=== PATIENT | female | born 1985 | race Caucasian/White ===

== ENCOUNTER → 2017-01-01 | Outpatient (CLI) | payer MEDICAID | LOC: HPND 13:55 | PROVIDERS: ATTEND Obstetrics & Gynecology | DX: O35.1XX0 Maternal care for (suspected) chromosomal abnormality in fetus, not applicable or unspecified (principal); O34.212 Maternal care for vertical scar from previous cesarean delivery; O09.32 Supervision of pregnancy with insufficient antenatal care, second trimester | CPT/HCPCS: 76811 ==

== ENCOUNTER → 2017-01-17 | Outpatient (CLI) | payer MEDICAID | LOC: HPND 10:33 | PROVIDERS: ATTEND Obstetrics & Gynecology | DX: O35.1XX0 Maternal care for (suspected) chromosomal abnormality in fetus, not applicable or unspecified (principal) | CPT/HCPCS: 59000; 76815; 76946 ==

== ENCOUNTER → 2017-02-07 | Outpatient (CLI) | payer MEDICAID | LOC: HPND 11:49 | PROVIDERS: ATTEND Obstetrics & Gynecology | DX: O35.1XX0 Maternal care for (suspected) chromosomal abnormality in fetus, not applicable or unspecified (principal) | CPT/HCPCS: 76816 ==

== ENCOUNTER → 2017-03-05 | Outpatient (CLI) | payer MEDICAID, OTHER ==
[~2017-03-05] MED LIST: IBUP-232 PO; OXYC1TAB63 PO; PERI8.6T PO
== END ==
LOC: HPND 07:50
PROVIDERS: ATTEND Obstetrics & Gynecology
DX: O35.8XX0 Maternal care for other (suspected) fetal abnormality and damage, not applicable or unspecified (principal)
CPT/HCPCS: 76816

== ENCOUNTER → 2017-04-11 | Outpatient (CLI) | payer MEDICAID, OTHER | LOC: HPND 08:19 | PROVIDERS: ATTEND Obstetrics & Gynecology | DX: O35.8XX0 Maternal care for other (suspected) fetal abnormality and damage, not applicable or unspecified (principal) | CPT/HCPCS: 76816; 76818 ==

== ENCOUNTER 2017-04-27 13:55 | Inpatient (IN) | payer OTHER ==
[~2017-04-27] VITALS: Ht 157.5 cm; Wt 56.2 kg
[2017-04-27] VITALS (7 sets, daily range): BP systolic 108–120; BP diastolic 65–70; PULSE 68–80; RESP 16–18; TEMP 97.7–98.6; O2SAT 98–100
[~2017-04-27 13:55] MED LIST changes: +DEXAMETHASONE SOD PHOS 4 MG/ML VIAL IV ONE; -IBUP-232 PO; +KETOROLAC TROMETHAMINE 30 MG/ML (IVP) VIAL IV PUSH ONE; +LACTATED RINGER'S 1000 ML INJ 2,000 ML IV ONE; +LIDOCAINE 2%/EPINEPHrine PF 1:200,000 20ML SDV OTHER ONE; +LIDOCAINE HCL 2% 100 MG/5 ML SYRINGE OTHER ONE; +MIDAZOLAM HCL 2 MG/2 ML VIAL IV ONE; +MORPHINE SULFATE 4 MG/ML INJ IV ONE; +MORPHINE SULFATE PF 5 MG/10 ML VIAL ONE; +NEOSTIGMINE 3 MG/3 ML SYR IV ONE; +ONDANSETRON HCL 4 MG/2 ML VIAL IV PUSH ONE; -OXYC1TAB63 PO; +OXYTOCIN 10 UNIT/ML AMP IV ONE; -PERI8.6T PO; +PROPOFOL 200 MG/20 ML AMP IV ONE; +SUCCINYLCHOLINE CHLORIDE 100 MG/5 ML SYRINGE IV PUSH ONE; +ceFAZolin INJ 1,000 MG VIAL IV ONE
--- NOTE | 2017-04-27 14:55 | PD ---
HPI Chief Complaint 35 weeks and 2 days Uterine contractions 2 -3 hours Date Seen: Apr 27, 2017 Time Seen: 14:00 Travel History International Travel<30 Days: No Contact w/Intl Traveler<30Days: No Known Affected Area: No History of Present Illness HPI Pt is a 31 yo , EDC 05-30-2017. Pt has complicated by TGV. Delivery is planned by C Section on 2016 at [place]. Pt presented for scheduled Diagnostic OB ultrasound this morning here, and discharged home. Since then, she reports uterine cramping. Active movements, no vaginal leaking or bleeding. No fevers or chills. Weeks Gestation: 35 Para: 1 : 2 History Past Medical History Medical History: Denies Significant Hx Obstetric History Obstetric History Pt had 3 term low tranverse C Sections. Pt had last complicated by hydrocephalus, delivered by Classical C Section. This complicated by TGV Past Surgical History Narrative Surgical C Section x 4 Family History Family History: Negative Social History Alcohol Use: No Tobacco Use: No Substance Abuse: No Allergies-Medications (Allergen,Severity, Reaction): Coded Allergies: No Known Allergies (Unverified , 04/27/17) Home Meds No Active Prescriptions or Reported Meds Review of Systems Except as stated in HPI: all other systems reviewed are Neg Physical Exam Narrative GENERAL: Well-nourished, well-developed patient. SKIN: Warm and dry. HEAD: Normocephalic and atraumatic. EYES: No scleral icterus. No injection or drainage. ENT: No nasal drainage noted. Mucous membranes pink. Airway patent. NECK: Supple, trachea midline. No JVD. CARDIOVASCULAR: Regular rate and rhythm without murmurs, gallops, or rubs. RESPIRATORY: Breath sounds equal bilaterally. No accessory muscle use. BREASTS: Bilateral exam showed no masses , no retractions, no nipple discharge. ABDOMEN/GI: Abdomen soft, non-tender, bowel sounds present, no rebound, no guarding Gravid to [35] weeks size Fundal Height: [-] GENITOURINARY: External Genitalia: intact and normal in appearance BUS glands: [-] Cervix: [firm-] Dilatation: [closed-] Effacement: [505] Station: [-3] Presentation: [vertex] Membranes: [intact] Uterine Contractions: [irregular, every 10 minutes] FHT's: Category: [1] Baseline: [120s] Reactive: [-] Variability: [moderate] Decels: [none] EXTREMITIES: No cyanosis or edema. BACK: Nontender without obvious deformity. No CVA tenderness. NEUROLOGICAL: Awake and alert. Motor and sensory grossly within normal limits. Five out of 5 muscle strength in all muscle groups. Normal speech. Data Data Vital Signs Reviewed: Yes Orders Orders Vital Signs (Adult) .ON ADMISSION (04/27/17:) ^ Labor Status (04/27/17) Urinalysis - C+S If Indicated (04/27/17:) ^ Hydration (04/27/17) Lactated Ringer's 1000 Ml Inj (Lr 1000 M (04/27/17:) Ondansetron Inj (Zofran Inj) (04/27/17 14:30) Terbutaline Inj (Brethine Inj) (04/27/17 14:30) MDM Medical Record Reviewed: Yes Interpretation(s) contractions, cervix closed. UA pending Plan IV LR bolus,, SQ Terbutaline 0.25mg, expectant After IV was started, and patient received SQ Terbutaline, patient vomited. Immediately after we noted bradycardia. Abdomen felt firm. This was confirmed with ultrasound FHR in 70s. Repeat SVE showed cervix soft, closed, 505. No bleeding noted. Decision made to proceed with stat C Section for NRFHR, Cat III, possible concealed placental abruption. Diagnosis Diagnosis: Primary Impression: uterine contractions in second trimester, antepartum Additional Impression: 35 weeks gestation of Scripts No Active Prescriptions or Reported Meds Franco Wilde MD Apr 27, 2017 14:55
[2017-04-27] MEDS ORDERED: ONDANSETRON HCL 4 MG/2 ML VIAL IV PUSH ONE (15:00)
[2017-04-27] MEDS ORDERED: TERBUTALINE INJ 1 MG/ML AMP SQ ONE (15:00)
[2017-04-27] MEDS ORDERED: LACTATED RINGER'S 1000 ML INJ 1,000 ML IV SCH ×2 (15:00→21:02)
[2017-04-27 15:30] LABS: BLOOD, URINE NEG (NEG); COMMENT (UR) CULT NOT INDICATED; CULTURE IF INDICATED CULT NOT INDICATED; GLUCOSE,URINE NEG (NEG); KETONE, URINE NEG (NEG); MUCUS URINE FEW /lpf (OCC); NITRITE,URINE NEG (NEG); PH, URINE 7.5 (5.0-8.5); URINE COLOR YELLOW (YELLW/STRAW)
[2017-04-27] MEDS ORDERED: ACETAMINOPHEN 1000 MG/100 ML 100 ML IV ONE (15:30)
[2017-04-27 16:06] LABS: BLOOD GAS BASE EXCESS -11.4 mmol/L (-2-2); BLOOD GAS O2 HGB SATURATION 2 % (90-100); CORD BLOOD GAS HCO3 21 mmol/L (21-29); CORD BLOOD GAS PCO2 127 mmHG (34-78); CORD BLOOD GAS PH 6.85 (7.14-7.42); CORD BLOOD GAS PO2 3 mmHG (3.0-40.0)
[2017-04-27 16:07] LABS: DRAW SITE CORD BLOOD; STAT NO
[2017-04-27] MEDS ORDERED: ONDANSETRON HCL 4 MG/2 ML VIAL IV PUSH PRN (16:15)
[2017-04-27] MEDS ORDERED: ACETAMINOPHEN 325 MG TAB PO PRN (16:15)
[2017-04-27] MEDS ORDERED: SODIUM CHLORIDE 0.9% FLUSH 10 ML FLUSH IV FLUSH PRN (16:15)
[2017-04-27] MEDS ORDERED: diphenhydrAMINE HCL 50 MG/ML VIAL IV PUSH PRN (16:15)
[2017-04-27] MEDS ORDERED: NALOXONE HCL 0.4 MG/ML AMP IV PUSH PRN (16:15)
[2017-04-27] MEDS ORDERED: OXYTOCIN 30 UNITS-500ML PREMIX 500 ML IV ONE (16:15)
[2017-04-27] MEDS ORDERED: KETOROLAC TROMETHAMINE 60 MG/2 ML (IM) VIAL IM PRN (16:15)
--- NOTE | 2017-04-27 16:30 | RADRPT ---
EXAM DATE/TIME: 04/27/2017 16:04 [facility] COMPARISON: No previous studies available for comparison. INDICATIONS : Instrument count for stat MEDICAL HISTORY : None. SURGICAL HISTORY : None. ENCOUNTER: Initial ACUITY: 1 day PAIN SCORE: Non-responsive. LOCATION: Abdomen FINDINGS: No definite radiopaque foreign bodies are demonstrated. The nonobstructive bowel gas pattern. No sign ificant abnormal calcification. The osseous structures are intact. CONCLUSION: No radiopaque foreign bodies identified. Antonio Jackson MD on April 27, 2017 at 16:27 Board Certified Radiologist. This report was verified electronically.
--- NOTE | 2017-04-27 16:33 | PD.OB.DELI ---
Procedure Note Section Procedure Pre Op Diagnosis: (1) 35 weeks gestation of (2) uterine contractions in second trimester, antepartum (3) bradycardia before the onset of labor Post Op Diagnosis: (1) 35 weeks gestation of (2) uterine contractions in second trimester, antepartum (3) bradycardia before the onset of labor (4) Uterine rupture Performed by Franco Wilde Procedure: Classical Section (Uterine rupture through previous classical scar) Indication for delivery: Nonreassuring heart tracing Previous condition: Perforation of Uterus Confirmed correct: Other (STAT C -SECTION) Anesthesia: Other (General endotracheal) Medication prior to procedure: As documented in eMAR Monitoring during procedure: Blood pressure monitoring, threat monitoring analyst Urinary catheter: Inserted using sterile technique Sterile preparation: With 10% povidone iodine (Betadine) Operative Features Skin Incision: Transverse Uterine Incision: Other (Midline vertical uterine rupture) Membranes Ruptured: Artificially Presentation: Occiput anterior Delivery date: Apr 27, 2017 Delivery time: 15:11 Delivery of : Assisted Infant: Male One Minute : 1 Five Minute : 4 Ten Minute : 5 Weight: 6 pounds Status of infant: Viable, Cord blood, Umbilical cord Placenta delivered: Intact Medications: Antibiotics Estimated blood loss: 600cc Procedure tolerated: Well Maternal Complications: Uterine rupture Maternal Condition: Stable Condition: Guarded (known TGV) Procedure in detail Pt was noted to have cat 1 FHR after vomiting. FHR was noted to be 70s on monitor. Abdomen palpated firm, SVE showed cervix closed, no vaginal bleeding. FHR confirmed with US. Stat C Section called on account prolonged bradycardia. Pt was brought to OR and placed dorsal supine on the operating table. Cleansed and draped in standard fashion with Betadine. General anesthesia induced and smoothly intubated. Midline subumbilical vertical incision made with scalpel. Rectus muscles and underlying peritoneum identified, tented with hemostats and extened by stretching. Extrauterine amniotic bag noted. Anterior uterine midline rupture noted. Intact membranes. Minimal bleeding noted from rupture. Amniotomy done with clear fluid. delivered from vertex, clamped and divided and passed to waiting Pediatricians. Posterior attachment of placenta delivered manually. No evidence of placental abruption. Uterine cavity cleared of all clot and debris. Uterine rupture closed in 3 layers, after edges sharpened, first with 0 Vicryl, continuous locking, second of the same material, used to imbricate the first.Serosa re-approximated with 2.0 Vicryl. Kenn hemostatic agent applied on incision and Sepra-film overlaid. Gutters cleared of debris and uterus returned to intraperitoneal location. Parietal peritoneum closed with 2.0 Vicryl and rectus fascia closed with 1 PDS. Subcutaneous tissue irrigated with warm saline and space reapproximated with 2.o Vicryl. Finally skin closed with 3.0 Monocryl in subcuticular fashion. X-ray done to confirm absence of retained sponge, in lieu of pre-operative count. Franco Wilde MD Apr 27, 2017 16:33
[2017-04-27] MEDS ORDERED: HYDROmorphone HCL PCA 6 MG/30 ML IV ONE (17:02)
[2017-04-27] MEDS: HYDROmorphone HCL PCA 6 MG/30 ML IV SCH (17:06)
[2017-04-27] MEDS ORDERED: OXYTOCIN 30 UNITS-500ML PREMIX 500 ML ONE (17:17)
--- NOTE | 2017-04-27 19:15 | HHI.HP ---
HPI Chief Complaint Admission H&P dictated after events Pt was rushed to stat C Section for Cat III FHR at 35 weeks and 1 day. Date Seen: Apr 27, 2017 Travel History International Travel<30 Days: No Contact w/Intl Traveler<30Days: No Known Affected Area: No History of Present Illness HPI Pt is a 31 yo , EDC 05-30-2017. Pt has complicated by TGV. Delivery is planned by C Section on 2016 at [place]. Pt presented for scheduled Diagnostic OB ultrasound this morning here, and discharged home. Since then, she reports uterine cramping. Active movements, no vaginal leaking or bleeding. No fevers or chills. Cervical exam was closed, FHR Cat 1 initially, but we noted regular contractions every 5-10 minutes. Pt felt contractions. We started IV bolus, and administered TERButaline SQ x 1. Pt subsequently vomited after which we noted immediate bradycardia. FHR stayed in 70s, for 7 minutes and decision was made for stat C Section. Weeks Gestation: 35 Para: 4 : 5 History Past Medical History Medical History: Denies Significant Hx Obstetric History Obstetric History 4 previous C sections x3 term LTCS Last by classical C Section Past Surgical History Narrative Surgical C Sections x 4 Social History Alcohol Use: No Tobacco Use: No Substance Abuse: No Allergies-Medications (Allergen,Severity, Reaction): Coded Allergies: No Known Allergies (Unverified , 04/27/17) Home Meds No Active Prescriptions or Reported Meds Review of Systems Except as stated in HPI: all other systems reviewed are Neg Physical Exam Vital Signs Date Time Temp Pulse Resp B/P (MAP) Pulse Ox O2 Delivery O2 Flow Rate FiO2 04/27/17 17:48 79 18 113/69 (84) 99 04/27/17 17:44 98.1 04/27/17 17:31 80 120/65 (83) 04/27/17 17:31 18 99 04/27/17 17:20 68 108/67 (81) 04/27/17 17:20 18 99 04/27/17 17:05 70 16 111/70 (84) 100 04/27/17 16:55 97.7 80 18 111/67 (82) 100 Narrative GENERAL: Well-nourished, well-developed patient. SKIN: Warm and dry. HEAD: Normocephalic and atraumatic. EYES: No scleral icterus. No injection or drainage. ENT: No nasal drainage noted. Mucous membranes pink. Airway patent. NECK: Supple, trachea midline. No JVD. CARDIOVASCULAR: Regular rate and rhythm without murmurs, gallops, or rubs. RESPIRATORY: Breath sounds equal bilaterally. No accessory muscle use. BREASTS: Bilateral exam showed no masses , no retractions, no nipple discharge. ABDOMEN/GI: Abdomen soft, non-tender, bowel sounds present, no rebound, no guarding Gravid to [35] weeks size Fundal Height: [-] GENITOURINARY: External Genitalia: intact and normal in appearance Please see description of events elsewhere in this note. EXTREMITIES: No cyanosis or edema. BACK: Nontender without obvious deformity. No CVA tenderness. NEUROLOGICAL: Awake and alert. Motor and sensory grossly within normal limits. Five out of 5 muscle strength in all muscle groups. Normal speech. Caprini VTE Risk Assessment Caprini VTE Risk Assessment: No/Low Risk (score <= 1) Caprini Risk Assessment Model Point Value = 1 Point Value = 2 Point Value = 3 Point Value = 5 Age 41-60 Minor surgery BMI > 25 kg/m2 Swollen legs Varicose veins or History of unexplained or recurrent spontaneous Oral contraceptives or hormone replacement Sepsis (< 1 month) Serious lung disease, including pneumonia (< 1 month) Abnormal pulmonary function Acute myocardial infarction Congestive heart failure (< 1 month) History of inflammatory bowel disease Medical patient at bed rest Age 61-74 Arthroscopic surgery Major open surgery (> 45 min) Laparoscopic surgery (> 45 min) Malignancy Confined to bed (> 72 hours) Immobilizing plaster cast Central venous access Age >= 75 History of VTE Family history of VTE Factor V Leiden Prothrombin [id number] Lupus anticoagulant Anticardiolipin antibodies Elevated serum homocysteine Heparin-induced thrombocytopenia Other congenital or acquired thrombophilia Stroke (< 1 month) Elective arthroplasty Hip, pelvis, or leg fracture Acute spinal cord injury (< 1 month) Prophylaxis Regimen Total Risk Factor Score Risk Level Prophylaxis Regimen 0-1 Low Early ambulation 2 Moderate Order ONE of the following: *Sequential Compression Device (SCD) *Heparin 5000 units SQ BID 3-4 Higher Order ONE of the following medications: *Heparin 5000 units SQ TID *Enoxaparin/Lovenox 40 mg SQ daily (WT < 150 kg, CrCl > 30 mL/min) *Enoxaparin/Lovenox 30 mg SQ daily (WT < 150 kg, CrCl > 10-29 mL/min) *Enoxaparin/Lovenox 30 mg SQ BID (WT < 150 kg, CrCl > 30 mL/min) AND/OR *Sequential Compression Device (SCD) 5 or more Highest Order ONE of the following medications: *Heparin 5000 units SQ TID (Preferred with Epidurals) *Enoxaparin/Lovenox 40 mg SQ daily (WT < 150 kg, CrCl > 30 mL/min) *Enoxaparin/Lovenox 30 mg SQ daily (WT < 150 kg, CrCl > 10-29 mL/min) *Enoxaparin/Lovenox 30 mg SQ BID (WT < 150 kg, CrCl > 30 mL/min) AND *Sequential Compression Device (SCD) Data Data Vital Signs Reviewed: Yes Orders Orders Vital Signs (Adult) .ON ADMISSION (04/27/17 14:23) ^ Labor Status (04/27/17 14:23) Urinalysis - C+S If Indicated (04/27/17 14:23) ^ Hydration (04/27/17 14:23) Lactated Ringer's 1000 Ml Inj (Lr 1000 M (04/27/17 15:00) Ondansetron Inj (Zofran Inj) (04/27/17 15:00) Terbutaline Inj (Brethine Inj) (04/27/17 15:00) Ob (2e) Additional Admit Info (04/27/17 15:04) Ob/Psych Drug Screen, Urine (04/27/17 15:06) Drug Screen, Random Urine (04/27/17 15:16) Specimen To Be Collected PRN (04/27/17 15:16) Acetaminophen 1000 Mg/100 Ml (Ofirmev 10 (04/27/17 15:30) Abdomen, Single View (04/27/17 ) ^ Monitor (04/27/17 16:02) Notify Dr: Other (04/27/17 16:02) Notify Dr: Blood Pressure (04/27/17 16:02) Notify Dr: Respiratory Rate (04/27/17 16:02) Naloxone Inj (Narcan Inj) (04/27/17 16:15) Diphenhydramine Inj (Benadryl Inj) (04/27/17 16:15) Hydromorphone Radiosonde Specialist Inj (Dilaudid Radiosonde Specialist Inj) (04/27/17 16:15) Radiosonde Specialist Total Dose - Dilaudid (04/27/17 22:00) Vital Signs (Adult) Q4HX24,Q12H (04/27/17 16:02) Activity Bed Rest (04/27/17 16:02) ^ Discontinue (04/28/17 16:02) Remove Dressing (04/28/17 16:02) ^ Rhogam (04/27/17 16:02) Diet Liquid (04/27/17 Dinner) Lactated Ringer's 1000 Ml Inj (Lr 1000 M (04/27/17 21:02) Oxytocin 30 Units-500ml Premix (Pitocin (04/27/17 16:15) Oxytocin 30 Units-500ml Premix (Pitocin (04/28/17 02:15) Sodium Chloride 0.9% Flush (Ns Flush) (04/27/17 21:00) Sodium Chloride 0.9% Flush (Ns Flush) (04/27/17 16:15) Simethicone Chew (Mylicon Chew) (04/27/17 16:15) Acetaminophen (Tylenol) (04/27/17 16:15) Ketorolac Inj (Toradol Inj) (04/27/17 16:15) Cefazolin Inj (Ancef Inj) (04/27/17 17:00) Znffnrm-Gprwv-Flhgunu Inj (M-M-R Ii Inj) (04/28/17 16:00) Xoev-Pjo-Tuteig (Booster) Inj (Boostrix (04/28/17 16:00) Ondansetron Inj (Zofran Inj) (04/27/17 16:15) Remove Urinary Catheter .ONCE (04/28/17 16:02) Admit To Inpatient (04/27/17 ) Complete Blood Count With Diff (04/27/17 16:02) Hold Clot (04/27/17 16:02) Abo/Rh Blood Type (04/27/17 16:02) Resp Oxygen Non Rebreathe Mask (04/27/17 ) Inpatient Certification (04/27/17 ) Hydromorphone Radiosonde Specialist Inj (Dilaudid Radiosonde Specialist Inj) (04/27/17 17:02) Oxytocin 30 Units-500ml Premix (Pitocin (04/27/17 17:17) Labs Laboratory Tests Test 04/27/17 15:00 04/27/17 15:12 Urine Color YELLOW Urine Turbidity CLOUDY Urine pH 7.5 Urine Specific [place] 1.012 Urine Protein NEG Urine Glucose (UA) NEG Urine Ketones NEG Urine Occult Blood NEG Urine Nitrite NEG Urine Bilirubin NEG Urine Urobilinogen LESS THAN 2.0 Urine Leukocyte Esterase NEG Urine WBC LESS THAN 1 Urine Amorphous Sediment RARE Urine Mucus FEW Microscopic Urinalysis Comment CULT NOT INDICATED Urine Opiates Screen NEG Urine Barbiturates Screen NEG Urine Amphetamines Screen NEG Urine Benzodiazepines Screen NEG Urine Cocaine Screen NEG Urine Cannabinoids Screen POS Blood Gas Puncture Site CORD BLOOD Blood Gas Base Excess -11.4 Blood Gas Oxygen Saturation 2 Cord Blood HCO3 21 Cord Arterial Blood pH 6.85 Cord Arterial Blood PCO2 127 Cord Arterial Blood PO2 3 Assessment/Plan Assessment and Plan 35 weeks and 2 days IUP. uterine contractions. Cat III heart tracing. Pt was rushed to OR for stat C section and uterine rupture detected. Franco Wilde MD Apr 27, 2017 19:15
[2017-04-27] MEDS ORDERED: SODIUM CHLORIDE 0.9% FLUSH 10 ML FLUSH IV FLUSH SCH (21:00)
[2017-04-27] MEDS ORDERED: PCA - TOTAL MG DILAUDID DELIVERED PER SHIFT OTHER SCH (22:00)
[2017-04-27 22:05] LABS: AUTOMATED NEUTROPHIL # 12.9 TH/MM3 (1.8-7.7); BASOPHIL # 0.1 TH/MM3 (0-0.2); BASOPHIL % 0.7 % (0.0-2.0); HEMATOCRIT 32.4 % (35.0-46.0); HEMO FLAGS DIFF FINAL; LYMPH % 9.4 % (9.0-44.0); LYMPHOCYTE # 1.4 TH/MM3 (1.0-4.8); MEAN CELL VOLUME 83.3 FL (80.0-100.0); MEAN CORPUSCULAR HEMOGLOBIN 26.5 PG (27.0-34.0); MEAN CORPUSCULAR HGB CONC 31.8 % (32.0-36.0); MONO % 5.5 % (0.0-8.0); NEUT % 84.4 % (16.0-70.0); PLATELET COUNT 183 TH/MM3 (150-450); RED BLOOD COUNT 3.89 MIL/MM3 (4.00-5.30); RED CELL DISTRIBUTION WIDTH 15.4 % (11.6-17.2); WHITE BLOOD COUNT 15.3 TH/MM3 (4.0-11.0)
[2017-04-28] VITALS (7 sets, daily range): BP systolic 101–112; BP diastolic 63–70; PULSE 68–82; RESP 14–18; TEMP 97.7–98.8
[2017-04-28] MEDS ORDERED: OXYTOCIN 30 UNITS-500ML PREMIX 500 ML IV PRN (02:15)
[2017-04-28] MEDS: HYDROmorphone HCL PCA 6 MG/30 ML IV SCH (02:21)
[2017-04-28] MEDS: SIMETHICONE 80 MG CHEWABLE TAB PO PRN ×2 (02:25→12:03)
--- NOTE | 2017-04-28 08:22 | HHI.OB ---
Subjective Post Operative Day: 1 Remarks Postoperative day number 1. AFVSS overnight. Pain minimal. Incision not draining. Decreased lochia. Denies dysuria. No breast tenderness. She is feeding the baby via breast. Appetite good. No nausea or vomiting. Endorses flatus. No bowel movement. Ambulating well. Denies calf pain, shortness of breath, or cough. Otherwise, she is doing well this morning and has no other complaints. Objective Vitals/I&O Vital Signs Date Time Temp Pulse Resp B/P (MAP) Pulse Ox O2 Delivery O2 Flow Rate FiO2 04/28/17 04:40 98.7 77 16 04/28/17 04:40 112/69 (83) 04/28/17 02:21 16 04/28/17 00:00 97.7 82 18 105/66 (79) 04/27/17 23:00 20 04/27/17 20:00 72 18 109/67 (81) 04/27/17 20:00 98.6 98 04/27/17 17:48 79 18 113/69 (84) 99 04/27/17 17:44 98.1 04/27/17 17:31 80 120/65 (83) 04/27/17 17:31 18 99 04/27/17 17:20 68 108/67 (81) 04/27/17 17:20 18 99 04/27/17 17:05 70 16 111/70 (84) 100 04/27/17 16:55 97.7 80 18 111/67 (82) 100 Result Diagram: 04/27/17 5834 Objective Remarks GENERAL: Well-nourished, well-developed patient. CARDIOVASCULAR: Regular rate and rhythm without murmurs, gallops, or rubs. RESPIRATORY: Breath sounds equal bilaterally. No accessory muscle use. ABDOMEN/GI: Abdomen soft, non-tender, bowel sounds present. Incision: Clean, dry and intact. Fundus: Firm, non-tender at umbilicus. GENITOURINARY: Light to moderate bleeding. EXTREMITIES: No cyanosis or edema, non-tender, without signs of DVT. Medications and IVs Current Medications Medications (Trade) Dose Ordered Sig/Julia Route Start Time Stop Time Status Last Admin Lactated Ringer's 1,000 ml @ 125 mls/hr Q8H IV 04/27/17 15:00 (Narcan Inj) 0.4 mg UNSCH PRN IV PUSH 04/27/17 16:15 (Benadryl Inj) 25 mg Q6H PRN IV PUSH 04/27/17 16:15 (Dilaudid SCENE SHIFTER Inj) 6 mg UNSCH IV 04/27/17 16:15 04/28/17 02:21 SCENE SHIFTER Dosage Infused (Pha) 1 Q8HR OTHER 04/27/17 22:00 04/27/17 23:00 Lactated Ringer's 1,000 ml @ 100 mls/hr Q10H IV 04/27/17 21:02 04/28/17 17:01 04/27/17 23:11 Oxytocin 500 ml @ 100 mls/hr UNSCH X1 PRN IV 04/28/17 02:15 04/29/17 02:14 (NS Flush) 2 ml BID IV FLUSH 04/27/17 21:00 (NS Flush) 2 ml UNSCH PRN IV FLUSH 04/27/17 16:15 (Mylicon Chew) 80 mg QID PRN PO 04/27/17 16:15 04/28/17 02:25 (Tylenol) 650 mg Q6H PRN PO 04/27/17 16:15 (Toradol Inj) 30 mg Q6H PRN IM 04/27/17 16:15 04/28/17 16:14 (M-M-R Ii Inj) 0.5 ml ONCE ONCE SQ 04/28/17 16:00 04/28/17 16:01 (Boostrix Inj) 0.5 ml ONCE ONCE IM 04/28/17 16:00 04/28/17 16:01 (Zofran Inj) 4 mg Q6H PRN IV PUSH 04/27/17 16:15 Assessment/Plan Assessment and Plan 31y/o female who is POD#1 s/p CXN due to distress -Continue routine care. -D/c SCENE SHIFTER pump; Percocet and Motrin PRN pain. -Encouraged OOB. Advised pelvic rest for 6 wks. Will need a f/u appt. in 1 wk for incision check. -Re: ctrl, she is undecided -D/c in 1-2 more days. dw OB attending Lionel Sotelo MD, R2 Apr 28, 2017 08:22
[2017-04-28] MEDS ORDERED: oxyCODONE/ACETAMINOPHEN 5 MG/325 MG TAB PO PRN (08:30)
[2017-04-28] MEDS: IBUPROFEN 600 MG TAB PO PRN ×2 (12:03→18:08)
[2017-04-28] MEDS: oxyCODONE/ACETAMINOPHEN 5 MG/325 MG TAB PO PRN ×2 (12:03→20:59)
[2017-04-28] MEDS ORDERED: DIPHTH/TETANUS/ACEL PERTUSSIS (BOOSTER) 0.5 ML VIAL/PFS IM ONE (16:00)
[2017-04-28] MEDS ORDERED: MEASLES, MUMPS, RUBELLA VACCINE 0.5 ML VIAL SQ ONE (16:00)
[2017-04-29] MEDS: IBUPROFEN 600 MG TAB PO PRN ×2 (00:33→06:32)
[2017-04-29] MEDS: oxyCODONE/ACETAMINOPHEN 5 MG/325 MG TAB PO PRN ×2 (00:34→06:33)
[2017-04-29] MEDS: SIMETHICONE 80 MG CHEWABLE TAB PO PRN (06:31)
--- NOTE | 2017-04-29 08:28 | HHI.DCPOC ---
Discharge Care Plan Diagnosis: (1) care following delivery Report Symptoms to Your Doctor -Temperature above 100.5 degrees -Redness, of incision or excessive or foul smelling drainage -Unusual pain or calf pain -Increased vaginal bleeding -Painful or difficulty urinating -Feelings of extreme sadness or anxiety after 2 weeks Goals to Promote Your Health * To prevent worsening of your condition and complications, follow up with your OB provider or PCP within 1 week after hospital discharge for an incision check or for any other concerns you may have. Directions to Meet Your Goals Take your medications as prescribed Follow your dietary instruction Follow activity as directed Ensure plenty of rest for recovery Drink fluids for hydration Keep your appointments as scheduled Take your immunizations and boosters as scheduled If your symptoms worsen call your PCP, if no PCP go to Urgent Care Center or Emergency Room Smoking is Dangerous to Your Health. Avoid second hand smoke Call the 24-hour crisis hotline for domestic abuse at Hang Carlin MD R2 Apr 29, 2017 08:28
[2017-04-29] MEDS ORDERED: OXYC1TAB63 PO (08:30)
[2017-04-29] MEDS ORDERED: IBUP-232 PO (08:30)
[2017-04-29] MEDS ORDERED: PERI8.6T PO (08:30)
--- NOTE | 2017-04-29 08:33 | HHI.OB ---
Subjective Post Operative Day: 2 Remarks Patient seen and examined this AM. Postoperative day number 2. AFVSS overnight. Pain is well controlled with Motrin and Percocet. Incision is clean and not draining. Decreased lochia. Denies dysuria. No breast tenderness. Appetite is good. No nausea or vomiting. Endorses flatus. Ambulating well without issues. Denies fevers or chills, calf pain, shortness of breath, or cough. Otherwise, she is doing well this morning and has no other complaints. (Hang Carlin MD R2) Remarks Patient seen and evaluated with resident under direct supervision, agree with assessment and plan. (Vinicio Fair MD) Objective Vitals/I&O Vital Signs Date Time Temp Pulse Resp B/P (MAP) Pulse Ox O2 Delivery O2 Flow Rate FiO2 04/28/17 21:00 98.8 69 16 103/65 (78) 04/28/17 16:40 97.9 72 16 101/63 (76) 04/28/17 09:40 16 04/28/17 08:40 14 04/28/17 08:40 16 (Hang Carlin MD R2) Result Diagram: 04/27/172153 Objective Remarks GENERAL: Well-nourished, well-developed patient. CARDIOVASCULAR: Regular rate and rhythm without murmurs, gallops, or rubs. RESPIRATORY: Breath sounds equal bilaterally. No accessory muscle use. ABDOMEN/GI: Abdomen soft, non-tender, bowel sounds present. Incision: Clean, dry and intact. Fundus: Firm, non-tender at umbilicus. GENITOURINARY: Light to moderate bleeding. EXTREMITIES: No cyanosis or edema, non-tender, without signs of DVT. Medications and IVs Current Medications Medications (Trade) Dose Ordered Sig/Julia Route Start Time Stop Time Status Last Admin (NS Flush) 2 ml BID IV FLUSH 04/27/17 21:00 (NS Flush) 2 ml UNSCH PRN IV FLUSH 04/27/17 16:15 (Mylicon Chew) 80 mg QID PRN PO 04/27/17 16:15 04/29/17 06:31 (Tylenol) 650 mg Q6H PRN PO 04/27/17 16:15 (Zofran Inj) 4 mg Q6H PRN IV PUSH 04/27/17 16:15 (Motrin) 600 mg Q6H PRN PO 04/28/17 08:30 04/29/17 06:32 (Percocet 5-325 Mg) 1 tab Q4H PRN PO 04/28/17 08:30 04/28/17 15:53 (Percocet 5-325 Mg) 2 tab Q4H PRN PO 04/28/17 08:30 04/29/17 06:33 (Hang Carlin MD R2) Assessment/Plan Assessment and Plan 31y/o female now who is POD#2 s/p CXN due to distress -Continue routine care. -D/c GREEN ENERGY MARKETING ANALYST pump; Percocet and Motrin PRN pain. -Encouraged OOB. Advised pelvic rest for 6 wks. Will need a f/u appt. in 1 wk for incision check. -Re: ctrl, she is undecided. She states she will f/u with her primary OB provider -Stable for discharge home today. Advised outpatient f/u within 1 week for incision check wdw OB attending (Hang Carlin MD R2) Hang Carlin MD R2 Apr 29, 2017 08:33 Vinicio Fair MD Apr 29, 2017 09:33
[2017-05-03 11:34] LABS: BATH SALTS (MDPV) UR NEG (NEG); ECSTASY (MDMA) UR NEG (NEG); GABAPENTIN UR NEG (NEG); HEROIN (6-ACETYLMORPHINE) UR NEG (NEG); HYDROMORPHONE U NEG (NEG); K2 SPICE UR NEG (NEG); OBMETHADONE UR NEG (NEG); PHENCYCLIDINE URINE NEG (NEG)
== END 2017-04-29 13:24 | disposition home or self-care (01) | DRG 765 ==
LOC: HOBED 13:55 → H2EB 15:09 → H1EA 18:22
PROVIDERS: ADMIT Obstetrics & Gynecology; ATTEND Obstetrics & Gynecology
PROC: 10D00Z0 Extraction of Products of Conception, High, Open Approach (ICD-10-PCS; principal; 2017-04-27)
PROC: 3E0P05Z Introduction of Adhesion Barrier into Female Reproductive, Open Approach (ICD-10-PCS; 2017-04-27)
DX: O76 Abnormality in fetal heart rate and rhythm complicating labor and delivery (principal); O60.14X0 Preterm labor third trimester with preterm delivery third trimester, not applicable or unspecified; O34.211 Maternal care for low transverse scar from previous cesarean delivery; O90.0 Disruption of cesarean delivery wound; Z3A.35 35 weeks gestation of pregnancy; Z37.0 Single live birth
CPT/HCPCS: 74000; 76815; 76818; 76820; 80307; 81001; 82805; 85025; 86900; 86901; 88307; 90715; 96360; 96372; C1765; G0481; J0131; J0330; J0690; J1100; J1170; J1885; J2250; J2270; J2274; J2405; J2590; J2710; J3010; J3105; J7120